=== PATIENT | female | born 1995 | race Caucasian/White ===

== ENCOUNTER 2018-02-09 14:59 | Emergency (ER) | payer OTHER ==
[2018-02-09] MEDS: IBUPROFEN 800 MG TAB PO (17:58)
[2018-02-09] MEDS: METHOCARBAMOL 500 MG TAB PO (17:58)
== END 2018-02-09 18:40 | disposition home or self-care (01) ==
LOC: NEPD 18:40
DX: M54.2 Cervicalgia (principal); R07.89 Other chest pain; R51 Headache
CPT/HCPCS: 71045; 93005; 99284